=== PATIENT | female | born 2000 | race American Indian/Alaskan Native ===

== ENCOUNTER 2018-12-04 09:04 | Observation (INO) | payer OTHER ==
[~2018-12-04] VITALS: Ht 165.1 cm; Wt 97.0 kg
[~2018-12-04 09:04] MED LIST: ANTOXYBENA RIGHTEAR; Bactrim Ds Tab1 EACH PO; CEPH500 PO
[2018-12-04 09:46] LABS: Source, Urine Catheter
[2018-12-04 09:57] LABS: BASOPHILS ABSOLUTE AUTO 0.03 K/mm3 (0.00-0.23); BASOPHILS PERCENT AUTO 0 % (0-2); EOSINOPHILS PERCENT AUTO 0 % (0-6); Hematocrit 34.1 % (33.0-51.0); Hemoglobin 11.1 g/dL (11.5-16.0); IMMATURE GRAN ABSOLUTE AUTO 0.29 K/mm3 (0.00-0.10); IMMATURE GRAN PERCENT AUTO 3 % (0-1); LYMPHOCYTES ABSOLUTE AUTO 0.74 K/mm3 (0.84-5.20); LYMPHOCYTES PERCENT AUTO 7 % (21-46); MONOCYTES ABSOLUTE AUTO 0.21 K/mm3 (0.16-1.47); MONOCYTES PERCENT AUTO 2 % (4-13); Mean Corpuscular HGB Conc 32.6 g/dL (31.5-36.5); Mean Corpuscular Volume 86 fL (80-100); Mean Platelet Volume 11.7 fL (9.1-12.4); NEUTROPHILS ABSOLUTE AUTO 9.71 K/mm3 (1.96-9.15); NEUTROPHILS PERCENT AUTO 89 % (41-73); Platelet Count 162 K/mm3 (150-400); RDW Coefficient Variation 12.5 % (11.7-14.2); RDW Standard Deviation 39.3 fL (35.1-46.3); Red Blood Cell Count 3.96 M/mm3 (3.80-5.20); White Blood Cell Count 10.98 K/mm3 (4.00-11.30)
[2018-12-04 09:59] LABS: Bilirubin, Urine Neg (Neg); Blood, Urine 3+ (Neg); Glucose Qualitative, Urine 1+ (Neg); Ketones, Urine Neg (Neg); Leukocyte Esterase, Urine 3+ (Neg); Nitrite, Urine Pos (Neg); Protein, Urine 3+ (Neg); Specific Gravity, Urine 1.015 (1.003-1.022); Urobilinogen, Urine NORM (Normal)
[2018-12-04 10:06] LABS: Appearance, Urine Cloudy (Clear); Color, Urine Yellow (P-Yellow)
[2018-12-04 10:08] LABS: White Blood Cells, Urine TNTC /hpf (0-5)
[2018-12-04 10:10] LABS: Amorphous Mod (0-Heavy); Bacteria Many /hpf; Squamous Epithelial Cells Few /hpf (Few)
[2018-12-04 10:12] LABS: International Normalized Ratio 1.19; Prothrombin Time Results 12.4 Sec (9.7-11.5)
[2018-12-04 10:23] LABS: Alanine Aminotransfer (ALT/SGP 13 U/L (12-78); Albumin, Blood 2.9 g/dL (3.4-5.0); Albumin/Globulin Ratio 0.8 (0.8-1.8); Alk Phos 69 U/L (50-136); Anion Gap 12 mmol/L (6-16); Aspartate Aminotrans (AST/SGOT 8 U/L (12-37); Bilirubin, Total 0.4 mg/dL (0.1-1.0); Blood Urea Nitrogen 12 mg/dL (8-24); Bun/Creatinine Ratio 10.5 (12.0-20.0); CO2, Blood 19 mmol/L (21-32); Calcium, Blood 8.4 mg/dL (8.5-10.1); Chloride, Blood 107 mmol/L (98-108); Creatinine, Blood 1.14 mg/dL (0.40-1.00); Globulin, Blood 3.8 g/dL (2.2-4.0); Glomerular Filtration Rate >60 (60-); Glucose, Blood 169 mg/dL (70-99); Potassium, Blood 3.3 mmol/L (3.5-5.5); Sodium, Blood 138 mmol/L (136-145); Total Protein, Blood 6.7 g/dL (6.4-8.2)
[2018-12-04 10:26] LABS: U Amphetamine Screen Not Detected; U Barbituate Screen Not Detected; U Benzodiazapine Screen Not Detected; U Buprenorphine Screen Not Detected; U Cannabinoids Screen Not Detected; U Cocaine Screen Not Detected; U Methadone Screen Not Detected; U Methamphetamine Screen Not Detected; U Opiates Screen Not Detected; U Oxycodone Screen Not Detected; U Phencyclidine Screen Not Detected; U Propoxyphene Screen Not Detected
[2018-12-04] MEDS ORDERED: SPRINTEC (12:25)
[2018-12-04 13:25] LABS: Acetaminophen, Random <2.0 ug/mL (10.0-30.0); Salicylate <1.7 mg/dL (2.8-20.0)
[2018-12-04] MEDS ORDERED: IBUP400 PO (18:06)
--- NOTE | 2018-12-04 19:59 | NUR ---
Shift Summary No acute changes since initial admission assessment. VSS. In no apparent sign of distress. Pt is A&Ox4. Calls appropriately and repositions self. Denies any pain. See admit assessment for detailed assessment. Pt is SBA, but states that she feels mildly dizzy w/standing and like she is waking up from a fog, so pt has been calling if needing to get up. Pt is afebrile. NSR on tele. Breathing e/u on RA. Family at bedside. Pt is currently resting in bed with call light within reach. Denies any further quesitons, complaints or requests at this time. Will continue to montior until report is given to florence COBIAN.
[2018-12-05 04:11] LABS: BASOPHILS ABSOLUTE AUTO 0.01 K/mm3 (0.00-0.23); BASOPHILS PERCENT AUTO 0 % (0-2); EOSINOPHILS PERCENT AUTO 0 % (0-6); Hematocrit 29.1 % (33.0-51.0); Hemoglobin 9.3 g/dL (11.5-16.0); IMMATURE GRAN ABSOLUTE AUTO 0.05 K/mm3 (0.00-0.10); IMMATURE GRAN PERCENT AUTO 0 % (0-1); LYMPHOCYTES ABSOLUTE AUTO 2.36 K/mm3 (0.84-5.20); LYMPHOCYTES PERCENT AUTO 20 % (21-46); MONOCYTES ABSOLUTE AUTO 1.13 K/mm3 (0.16-1.47); MONOCYTES PERCENT AUTO 10 % (4-13); Mean Corpuscular HGB 27.5 pg (26.0-34.0); Mean Corpuscular Volume 86 fL (80-100); Mean Platelet Volume 11.6 fL (9.1-12.4); NEUTROPHILS ABSOLUTE AUTO 8.39 K/mm3 (1.96-9.15); NEUTROPHILS PERCENT AUTO 70 % (41-73); Platelet Count 151 K/mm3 (150-400); RDW Coefficient Variation 13.1 % (11.7-14.2); RDW Standard Deviation 40.9 fL (35.1-46.3); Red Blood Cell Count 3.38 M/mm3 (3.80-5.20); White Blood Cell Count 11.94 K/mm3 (4.00-11.30)
[2018-12-05 04:31] LABS: Alanine Aminotransfer (ALT/SGP 18 U/L (12-78); Albumin, Blood 2.5 g/dL (3.4-5.0); Albumin/Globulin Ratio 0.7 (0.8-1.8); Alk Phos 58 U/L (50-136); Anion Gap 8 mmol/L (6-16); Aspartate Aminotrans (AST/SGOT 18 U/L (12-37); Bilirubin, Total 0.6 mg/dL (0.1-1.0); Blood Urea Nitrogen 9 mg/dL (8-24); Bun/Creatinine Ratio 14.1 (12.0-20.0); CO2, Blood 23 mmol/L (21-32); Calcium, Blood 7.7 mg/dL (8.5-10.1); Chloride, Blood 113 mmol/L (98-108); Creatinine, Blood 0.64 mg/dL (0.40-1.00); Globulin, Blood 3.4 g/dL (2.2-4.0); Glomerular Filtration Rate >60 (60-); Glucose, Blood 91 mg/dL (70-99); Potassium, Blood 4.1 mmol/L (3.5-5.5); Sodium, Blood 144 mmol/L (136-145); Total Protein, Blood 5.9 g/dL (6.4-8.2)
--- NOTE | 2018-12-05 05:40 | NUR ---
SHIFT SUMMARY: PATIENT SLEPT WELL THIS SHIFT, GOOD UO, NO ISSUES, USING CALL LIGHT APPROPRIATLY. ALL VSS, NO ISSUES NOTED THIS SHIFT
[2018-12-05] MEDS ORDERED: ACET325 PO (11:22)
[2018-12-05] MEDS ORDERED: ASCO500 PO (11:23)
[2018-12-05] MEDS ORDERED: CALCIUM 500 +1 EAC3 PO (11:24)
[2018-12-05] MEDS ORDERED: Ferrous Sulfat325 M2 PO (11:25)
[2018-12-05] MEDS ORDERED: LEVO750 PO (11:26)
[2018-12-05] MEDS ORDERED: ONDA4ODT MM (11:27)
[2018-12-05] MEDS ORDERED: SACC250C PO (11:28)
[2018-12-05] MEDS ORDERED: Pyridium200 MG PO (11:28)
--- NOTE | 2018-12-05 12:02 | NUR ---
Advance Directive education conducted. I introduced myself and stated the purpose of my visit as I entered the room and patient welcomed me. I explained what an advance directive is and the importance of having one. Patient clearly stated that she understood but was not interested in filling out the form and that she was satisfied with having a full code status in her medical record. Patient said that she would revisit the subject when she gets to be a little older.
--- NOTE | 2018-12-05 14:00 | NUR ---
DISCAHRGE SUMMARY NO ACUTE CHANGES NOTED SINCE ASSESSMENT THIS AM. PT A&OX4. CALM AND COOPERATIVE WITH CARE. PT MAKES NEEDS KNOWN. SBA TO BATHROOM. PT REPORTS PEGUERO THIS AM, MEDICATED WITH TYLENOL WITH POSITIVE RESULTS. PT DENIES SOB AND N/V DURING SHIFT. PT RECEIVING IV NS AND IV ANTIBIOTICS. PT TO TRANSITION TO PO ANTIBIOTICS AT HOME. ZHANG IN PLACE THIS AM, PATENT AND DRAINING, REMOVED FOR DISCHARGE. PT URINATED 300CC AFTER REMOVAL. VSS. PT AND FAMILY EDUCATED ON DISCAHRGE, MEDICATIONS, FOLLOW UP APPOINTMENTS AND FOLLOW UP LAB DRAW. PT WILL BE STAYING WITH PARENTS, HOUSE IS EASIER TO ACCESS. PRESCRIPTIONS FAXED TO [facility], PER PT REQUEST. PT LEFT ROOM VIA WHELLCHAIR AT 1510. PT STABLE UPON DISCAHRGE.
[2018-12-06] MEDS ORDERED: PROM25 PO (10:35)
== END 2018-12-05 13:52 | disposition home or self-care (01) ==
LOC: ER 09:04 → ERHOLD 09:05 → PCU 17:41
PROVIDERS: Physician Assistant; ADMIT Family Medicine
DX: A41.9 Sepsis, unspecified organism (principal); N39.0 Urinary tract infection, site not specified; R65.20 Severe sepsis without septic shock; N17.9 Acute kidney failure, unspecified; E87.6 Hypokalemia; E86.0 Dehydration; G93.40 Encephalopathy, unspecified; R73.9 Hyperglycemia, unspecified; Z88.0 Allergy status to penicillin
CPT/HCPCS: 36415; 51702; 70450; 71046; 80053; 81001; 81025; 83605; 84145; 84146; 85025; 85610; 85730; 87040; 87077; 87086; 87186; 90686; 93005; 93010; 96361; 96361-59; 96365-59; 96366; 96367; 96375; 96375-59; 96376; 96376-59; 99285-25; G0008; G0378; G0480; J0696; J1956; J2405; J3480; J7030

== ENCOUNTER 2020-08-11 19:35 | Emergency (ER) | payer OTHER ==
[~2020-08-11] VITALS: Ht 165.1 cm; Wt 90.7 kg
[~2020-08-11 19:35] MED LIST changes: +ACET325 PO; +ASCO500 PO; +CALCIUM 500 +1 EAC3 PO; +Ferrous Sulfat325 M2 PO; +IBUP400 PO; +LEVO750 PO; +ONDA4ODT MM; +PROM25 PO; +Pyridium200 MG PO; +SACC250C PO; +SPRINTEC
== END 2020-08-11 19:49 | disposition home or self-care (01) ==
LOC: ER 19:35
DX: T16.2XXA Foreign body in left ear, initial encounter (principal); Z88.0 Allergy status to penicillin; Z79.899 Other long term (current) drug therapy
CPT/HCPCS: 99282

== ENCOUNTER 2022-05-29 03:58 | Emergency (ER) | payer OTHER ==
[~2022-05-29] VITALS: Ht 167.6 cm; Wt 81.7 kg
[2022-05-29 06:28] LABS: Source, Urine Clean Catch
[2022-05-29 06:40] LABS: Calcium, Ionized (POC) 1.18 mmol/L (1.10-1.46); Chloride (POC) 103 mmol/L (98-108); Creatinine (POC) 0.7 mg/dL (0.6-1.0); Glucose (ISTAT POC) 86 mg/dL (70-99); Hemoglobin (POC) 12.6 g/dL (12.0-16.0); Potassium (POC) 3.8 mmol/L (3.5-5.5); Sodium (POC) 139 mmol/L (135-148); Total CO2 (POC) 24 mmol/L (21-32)
[2022-05-29 06:40] LABS: Appearance, Urine Cloudy (Clear); Bilirubin, Urine Neg (Neg); Blood, Urine 5+ (Neg); Color, Urine Amber (P-Yellow); Glucose Qualitative, Urine Neg (Neg); Ketones, Urine 2+ (Neg); Leukocyte Esterase, Urine 1+ (Neg); Nitrite, Urine Neg (Neg); Protein, Urine 3+ (Neg); Specific Gravity, Urine 1.025 (1.003-1.022); Urobilinogen, Urine NORM (Normal)
[2022-05-29 06:59] LABS: Bacteria Few /hpf; Red Blood Cells, Urine TNTC /hpf (0-2); Squamous Epithelial Cells Rare /hpf (Few)
== END 2022-05-29 07:29 | disposition home or self-care (01) ==
LOC: ER 03:58
PROVIDERS: Emergency Medicine
DX: R53.83 Other fatigue (principal); N92.0 Excessive and frequent menstruation with regular cycle; R10.32 Left lower quadrant pain; Z88.0 Allergy status to penicillin
CPT/HCPCS: 76830; 76856; 80047; 81001; 81025; 85014

== ENCOUNTER → 2022-06-12 | Outpatient (CLI) | payer OTHER | LOC: LAB SHORT 10:00 → LAB 10:00 | DX: R10.2 Pelvic and perineal pain (principal) ==

== ENCOUNTER → 2022-07-18 | Outpatient (CLI) | payer OTHER ==
[2022-07-18 14:05] LABS: G. vaginalis (DNA Probe) Negative (NEGATIVE); T. vaginalis (DNA Probe) Negative (NEGATIVE)
[2022-07-18 14:06] LABS: Candida species (DNA Probe) Negative (NEGATIVE)
[2022-07-20 02:07] LABS: CHLAMYDIA TRACHOMATIS, NAA Negative (Negative)
== END ==
LOC: LAB 08:38 → LAB SHORT 08:38
PROVIDERS: Physician Assistant
DX: R10.2 Pelvic and perineal pain (principal)
CPT/HCPCS: 87480; 87491; 87510; 87591; 87660

== ENCOUNTER → 2022-08-03 | Outpatient (CLI) | payer OTHER | END | disposition home or self-care (01) | LOC: LAB 10:24 → LAB SHORT 10:24 | DX: B37.0 Candidal stomatitis (principal) | CPT/HCPCS: 87081 ==

== ENCOUNTER 2022-08-26 00:58 | Emergency (ER) | payer OTHER ==
[2022-08-26] MEDS ORDERED: SUMA25 PO (04:31)
[2022-08-26] MEDS ORDERED: IBUP800 PO (04:31)
== END 2022-08-26 04:41 | disposition home or self-care (01) ==
DX: R51.9 Headache, unspecified (principal); R11.0 Nausea; H53.9 Unspecified visual disturbance; R42 Dizziness and giddiness; Z88.0 Allergy status to penicillin

== ENCOUNTER 2022-09-08 19:25 | Emergency (ER) | payer OTHER ==
[~2022-09-08] VITALS: Ht 165.1 cm; Wt 90.7 kg
[~2022-09-08 19:25] MED LIST changes: +IBUP800 PO; +SUMA25 PO
[2022-09-08 20:28] LABS: BASOPHILS ABSOLUTE AUTO 0.07 K/mm3 (0.00-0.23); BASOPHILS PERCENT AUTO 1 % (0-2); EOSINOPHILS ABSOLUTE AUTO 0.07 K/mm3 (0.00-0.68); EOSINOPHILS PERCENT AUTO 1 % (0-6); Hematocrit 43.2 % (33.0-51.0); IMMATURE GRAN ABSOLUTE AUTO 0.08 K/mm3 (0.00-0.10); IMMATURE GRAN PERCENT AUTO 1 % (0-1); LYMPHOCYTES ABSOLUTE AUTO 4.08 K/mm3 (0.84-5.20); LYMPHOCYTES PERCENT AUTO 28 % (21-46); MONOCYTES PERCENT AUTO 6 % (4-13); Mean Corpuscular HGB 29.3 pg (26.0-34.0); Mean Corpuscular HGB Conc 34.7 g/dL (31.5-36.5); Mean Corpuscular Volume 84 fL (80-100); Mean Platelet Volume 11.3 fL (9.1-12.4); NEUTROPHILS ABSOLUTE AUTO 9.44 K/mm3 (1.96-9.15); NEUTROPHILS PERCENT AUTO 65 % (41-73); Platelet Count 313 K/mm3 (150-400); RDW Coefficient Variation 12.5 % (11.7-14.2); RDW Standard Deviation 38.3 fL (35.1-46.3); Red Blood Cell Count 5.12 M/mm3 (3.80-5.20); White Blood Cell Count 14.54 K/mm3 (4.00-11.30)
[2022-09-08 20:47] LABS: Albumin, Blood 3.7 g/dL (3.4-5.0); Albumin/Globulin Ratio 0.9 (0.8-1.8); Bilirubin, Total 0.3 mg/dL (0.1-1.0); Bun/Creatinine Ratio 11.4 (12.0-20.0); Calcium, Blood 9.5 mg/dL (8.5-10.1); Creatinine, Blood 0.7 mg/dL (0.40-1.00); Globulin, Blood 4.1 g/dL (2.2-4.0); Potassium, Blood 4.1 mmol/L (3.5-5.5); Total Protein, Blood 7.8 g/dL (6.4-8.2)
[2022-09-08 20:51] LABS: Source, Urine Clean Catch
[2022-09-08 21:13] LABS: Appearance, Urine Clear (Clear); Bilirubin, Urine Neg (Neg); Blood, Urine Neg (Neg); Color, Urine Yellow (P-Yellow); Glucose Qualitative, Urine Neg (Neg); Ketones, Urine Neg (Neg); Leukocyte Esterase, Urine Neg (Neg); Nitrite, Urine Neg (Neg); Protein, Urine Neg (Neg); Urobilinogen, Urine NORM (Normal)
== END 2022-09-09 00:22 | disposition home or self-care (01) ==
LOC: ER 19:25
PROVIDERS: Physician Assistant
DX: R10.31 Right lower quadrant pain (principal); D72.829 Elevated white blood cell count, unspecified; Z88.0 Allergy status to penicillin; Z79.899 Other long term (current) drug therapy
CPT/HCPCS: 80053; 81003; 81025; 85025; A9270

== ENCOUNTER → 2023-01-01 | Outpatient (CLI) | payer OTHER | END | disposition home or self-care (01) | LOC: LAB SHORT 17:38 → LAB 17:38 | DX: R30.0 Dysuria (principal) | CPT/HCPCS: 87086 ==

== ENCOUNTER 2024-09-01 19:10 | Inpatient (IN) | payer OTHER ==
[2024-09-01] VITALS (7 sets, daily range): BP systolic 108–132; BP diastolic 57–78
[~2024-09-01] VITALS: Ht 167.6 cm; Wt 136.4 kg
[2024-09-01] MEDS ORDERED: Carboprost Tromethamine 250 MCG/ML 1ML Amp IM PRN (19:20)
[2024-09-01] MEDS ORDERED: ePHEDrine Sulfate 50 MG/ML 1ML Injection XX PRN (19:20)
[2024-09-01] MEDS ORDERED: Misoprostol 200 MCG Tab BC PRN (19:20)
[2024-09-01] MEDS ORDERED: Methylergonovine Maleate 0.2MG / ML 1ML Amp IM PRN (19:20)
[2024-09-01] MEDS ORDERED: FentaNYL 2mcg/ml-Bup 0.1% Epd 250 ML EPI PRN (19:20)
[2024-09-01] MEDS ORDERED: OXYTOCIN/RINGER'S LACTATE 500 ML IV PRN (19:20)
[2024-09-01] MEDS ORDERED: Lactated Ringer's 1,000 ML IV SCH ×2 (19:20)
[2024-09-01] MEDS ORDERED: Oxytocin 10 Unit / ML Vial IM PRN (19:20)
[2024-09-01] MEDS ORDERED: Ondansetron HCl 2 MG / ML 2ML Vial IV PRN (19:20)
[2024-09-01] MEDS ORDERED: Tranexamic Acid 1,000 MG in NS 100 ML IV SCH (19:20)
[2024-09-01] MEDS ORDERED: Lactated Ringer's 1,000 ML IV PRN (19:20)
[2024-09-01] MEDS ORDERED: Acetaminophen 500 MG Tab PO PRN (19:20)
[2024-09-01] MEDS ORDERED: Misoprostol 200 MCG Tab PR PRN (19:20)
[2024-09-01] MEDS ORDERED: Calcium Carbonate 500 MG Tab Chew PO PRN (19:25)
[2024-09-01] MEDS ORDERED: Misoprostol 25 MCG Tab VAG SCH (20:00)
[2024-09-01] MEDS ORDERED: METF500 PO (20:10)
[2024-09-01] MEDS ORDERED: DiphenhydrAMINE HCl 50 MG Cap PO PRN (20:20)
[2024-09-01] MEDS ORDERED: DiphenhydrAMINE HCl 50 MG/ML 1ML Vial IV PRN (20:20)
[2024-09-01] MEDS ORDERED: Zolpidem Tartrate 5 MG Tab PO PRN (20:20)
[2024-09-01] MEDS ORDERED: MetFORMIN HCl 500 mg PO ONE (20:50)
[2024-09-01 20:51] LABS: BASOPHILS ABSOLUTE AUTO 0.03 K/mm3 (0.00-0.23); BASOPHILS PERCENT AUTO 0 % (0-2); EOSINOPHILS ABSOLUTE AUTO 0.09 K/mm3 (0.00-0.68); EOSINOPHILS PERCENT AUTO 1 % (0-6); Hematocrit 34.2 % (33.0-51.0); IMMATURE GRAN ABSOLUTE AUTO 0.06 K/mm3 (0.00-0.10); IMMATURE GRAN PERCENT AUTO 1 % (0-1); LYMPHOCYTES ABSOLUTE AUTO 2.27 K/mm3 (0.84-5.20); LYMPHOCYTES PERCENT AUTO 23 % (21-46); MONOCYTES ABSOLUTE AUTO 0.49 K/mm3 (0.16-1.47); MONOCYTES PERCENT AUTO 5 % (4-13); Mean Corpuscular HGB 29.9 pg (26.0-34.0); Mean Corpuscular HGB Conc 35.1 g/dL (31.5-36.5); Mean Corpuscular Volume 85 fL (80-100); Mean Platelet Volume 12.6 fL (9.1-12.4); NEUTROPHILS ABSOLUTE AUTO 6.99 K/mm3 (1.96-9.15); NEUTROPHILS PERCENT AUTO 70 % (41-73); Platelet Count 209 K/mm3 (150-400); RDW Coefficient Variation 13.9 % (11.7-14.2); RDW Standard Deviation 43.2 fL (35.1-46.3); Red Blood Cell Count 4.01 M/mm3 (3.80-5.20); White Blood Cell Count 9.93 K/mm3 (4.00-11.30)
[2024-09-01] MEDS ORDERED: CeFAZolin Sodium 2,000 MG in NS 100 ML IV ONE ×2 (20:55→21:00)
[2024-09-02] VITALS (41 sets, daily range): BP systolic 96–151; BP diastolic 52–86
[2024-09-02] MEDS ORDERED: CeFAZolin Sodium 1,000 MG in NS 50 ML IV SCH ×2 (04:30→05:30)
[2024-09-02] MEDS ORDERED: CeFAZolin 1000MG in D5W 50 ML IV SCH (05:00)
[2024-09-02] MEDS ORDERED: FentaNYL Citrate 50 MCG/ML 2 ML Injection IV PRN (05:45)
[2024-09-02] MEDS ORDERED: OXYTOCIN/RINGER'S LACTATE 500 ML IV SCH ×2 (08:50→18:40)
[2024-09-02] MEDS ORDERED: Lactated Ringer's 1,000 ML IV SCH ×2 (08:50→18:35)
[2024-09-02] MEDS ORDERED: NS 1,000 ML IV SCH (14:45)
--- NOTE | 2024-09-02 18:12 | NUR ---
REPAIR BEING DONE
[2024-09-02] MEDS ORDERED: Ketorolac Tromethamine 30mg Vial IV PRN (18:35)
[2024-09-02] MEDS ORDERED: Ibuprofen 400 MG Tab PO PRN (18:35)
[2024-09-02] MEDS ORDERED: Methylergonovine Maleate 0.2MG / ML 1ML Amp IM PRN (18:35)
[2024-09-02] MEDS ORDERED: Rho(D) Immune Globulin 300 MCG / SYR IM ONE (18:35)
[2024-09-02] MEDS ORDERED: Diphth,Pertuss(Acell),Tet Vac 0.5 ML VIAL IM ONE (18:40)
[2024-09-02] MEDS ORDERED: Lanolin Cream TOP PRN (18:40)
[2024-09-02] MEDS ORDERED: OxyCODONE 5 mg/Acetamin 325 mg TABLET PO PRN (18:40)
[2024-09-02] MEDS ORDERED: FLU VACC TS2024-25(6MOS UP)/PF 45 MCG/0.5 ML SYRINGE IM SCH (18:40)
[2024-09-02] MEDS ORDERED: Witch Hazel/Glycerin PADS TOP PRN (18:40)
[2024-09-02] MEDS ORDERED: Acetaminophen 325 MG TABLET PO PRN (18:45)
[2024-09-02] MEDS ORDERED: Benzocaine Topical Anesthetic Spray 60GM TOP PRN (18:45)
[2024-09-02] MEDS ORDERED: Docusate Sodium 100 MG Cap PO PRN (18:45)
[2024-09-02] MEDS ORDERED: Misoprostol 100 MCG Tab PO PRN (18:45)
[2024-09-03 02:50] VITALS: BP 118/69
[2024-09-03 06:07] VITALS: BP 121/76
[2024-09-03 07:40] VITALS: BP 108/68
[2024-09-03] MEDS ORDERED: Rho(D) Immune Globulin 300 MCG / SYR IV ONE ×2 (08:30→11:40)
[2024-09-03] MEDS ORDERED: Prenatal Vit/FE Fumarate/FA 1 Tab PO SCH (09:00)
[2024-09-03 11:31] VITALS: BP 103/64
--- NOTE | 2024-09-03 11:41 | NUR ---
PT CONCERN ABOUT NB'S LATCH. PT REASSURED AND DISCUSSED WE WOULD CONTINUE TO ASSIST WITH LATCHING. NB HAS A GOOD LATCH. PT DENIES PAIN AT THIS TIME. REQUESTS FLU SHOT PRIOR TO D/C.
--- NOTE | 2024-09-03 12:50 | NUR ---
UP IN SHOWER. AMBULATING IN ROOM WELL. NO COMPLAINTS
[2024-09-03 18:41] VITALS: BP 123/66
--- NOTE | 2024-09-03 20:09 | NUR ---
RN WENT OVER DISCHARGE TEACHING AND SIGHNED DISCHARGE PAPERS. RN WATCHED FOB PLACED IN CAR SEAT. RN FOLLOWED OUT FAMILY OF MOB, FOB HOLDING , AND MOB OUT TO VEHICLE. RN WATCHED FOB PLACE IN CARSEAT INTO VEHICLE. PT HAD NO QUESTIONS OR CONCERNS AT TIME AND WAS EDUCATED ON TO CALL PROVIDER FOR ANY CONCERNS THAT ARISE.
== END 2024-09-03 19:51 | disposition home or self-care (01) | DRG 807 ==
LOC: OBS 19:10 → BC 19:13 → OBS 19:21 → BC 19:21
PROVIDERS: ADMIT Advanced Practice Midwife
PROC: 10E0XZZ Delivery of Products of Conception, External Approach (ICD-10-PCS; principal; 2024-09-02)
PROC: 0KQM0ZZ Repair Perineum Muscle, Open Approach (ICD-10-PCS; 2024-09-02)
PROC: 4A0HXCZ Measurement of Products of Conception, Cardiac Rate, External Approach (ICD-10-PCS; 2024-09-02)
PROC: 3E0R3BZ Introduction of Anesthetic Agent into Spinal Canal, Percutaneous Approach (ICD-10-PCS; 2024-09-02)
PROC: 10H07YZ Insertion of Other Device into Products of Conception, Via Natural or Artificial Opening (ICD-10-PCS; 2024-09-02)
PROC: 00HU33Z Insertion of Infusion Device into Spinal Canal, Percutaneous Approach (ICD-10-PCS; 2024-09-02)
PROC: 3E033VJ Introduction of Other Hormone into Peripheral Vein, Percutaneous Approach (ICD-10-PCS; 2024-09-02)
DX: O48.0 Post-term pregnancy (principal); Z37.0 Single live birth; O24.420 Gestational diabetes mellitus in childbirth, diet controlled; O99.824 Streptococcus B carrier state complicating childbirth; O70.1 Second degree perineal laceration during delivery; Z3A.41 41 weeks gestation of pregnancy; Z87.19 Personal history of other diseases of the digestive system; Z98.890 Other specified postprocedural states; Z88.0 Allergy status to penicillin; Z88.1 Allergy status to other antibiotic agents; Z71.6 Tobacco abuse counseling
CPT/HCPCS: 36415; 51702; 59070; 82947; 85025; 85460; 86850; 86900; 86901; 86923; 90656; A9270; J0690; J1885; J2590; J2791; J3010; J7030; J7120

== ENCOUNTER → 2025-05-02 | Outpatient (CLI) | payer OTHER ==
[~2025-05-02] MED LIST changes: +METF500 PO
[2025-05-02 19:10] LABS: Bacterial Vaginosis PCR Negative (NEGATIVE); Candida Group, PCR NOT DETECTED (NOT DETECT); Candida glabrata-krusei, PCR NOT DETECTED (NOT DETECT)
== END ==
LOC: LAB 15:43 → LAB SHORT 15:43
PROVIDERS: Physician Assistant Medical
DX: N94.819 Vulvodynia, unspecified (principal)
CPT/HCPCS: 81515